=== PATIENT | female | born 1980 | race Caucasian/White ===

== ENCOUNTER 2020-07-03 14:19 | Emergency (ER) | payer BC ==
[2020-07-03 14:34] VITALS: BP 116/61; PULSE 60; TEMP 98.1; BMI 24.5
[2020-07-03] MEDS ORDERED: LORATADINE 10 MG TABLET PO ONE (14:46)
[2020-07-03] MEDS ORDERED: LORATADINE 10 MG TABLET ONE (14:57)
== END 2020-07-03 15:15 | disposition home or self-care (01) ==
LOC: FER 14:19
DX: T78.40XA Allergy, unspecified, initial encounter (principal)
CPT/HCPCS: 99284-25